=== PATIENT | male | born 1970 | race Caucasian/White ===

== ENCOUNTER 2016-12-26 15:20 | Emergency (ER) | payer OTHER ==
[~2016-12-26] VITALS: Ht 177.8 cm; Wt 103.0 kg
[2016-12-26 15:21] VITALS: BP 169/99; PULSE 85; RESP 17; TEMP 97.7; O2SAT 99
[2016-12-26 15:28] VITALS: BP 159/95; PULSE 78; RESP 16; O2SAT 98
[2016-12-26 15:34] VITALS: BP 159/95; PULSE 79; RESP 16
[2016-12-26] MEDS ORDERED: ACETAMINOPHEN 325 MG TAB PO ONE (15:45)
[2016-12-26] MEDS ORDERED: PROCHLORPERAZINE INJ 10 MG/2 ML VIAL IV PUSH ONE (15:45)
[2016-12-26] MEDS ORDERED: SODIUM CHLORID 0.9% 500 ML INJ 500 ML IV ONE (15:45)
[2016-12-26] MEDS ORDERED: diphenhydrAMINE HCL 50 MG/ML VIAL IV PUSH ONE (15:45)
[2016-12-26] MEDS ORDERED: AMLO5TAB2 PO (15:49)
[2016-12-26 16:10] LABS: AUTOMATED NEUTROPHIL # 3.7 TH/MM3 (1.8-7.7); BASOPHIL # 0.1 TH/MM3 (0-0.2); BASOPHIL % 1.4 % (0.0-2.0); EOSINOPHIL # 0.2 TH/MM3 (0-0.4); EOSINOPHIL % 3.3 % (0.0-4.0); HEMATOCRIT 44.6 % (39.0-51.0); HEMO FLAGS DIFF FINAL; LYMPH % 33.2 % (9.0-44.0); LYMPHOCYTE # 2.3 TH/MM3 (1.0-4.8); MEAN CELL VOLUME 92.9 FL (80.0-100.0); MEAN CORPUSCULAR HEMOGLOBIN 32.6 PG (27.0-34.0); MEAN CORPUSCULAR HGB CONC 35.1 % (32.0-36.0); MONO % 9.4 % (0.0-8.0); NEUT % 52.7 % (16.0-70.0); PLATELET COUNT 195 TH/MM3 (150-450); RED CELL DISTRIBUTION WIDTH 13.3 % (11.6-17.2); WHITE BLOOD COUNT 7.1 TH/MM3 (4.0-11.0)
[2016-12-26 16:34] LABS: ALKALINE PHOSPHATASE 71 U/L (45-117); TOTAL BILIRUBIN ADULT 0.3 MG/DL (0.2-1.0)
[2016-12-26 16:46] LABS: ALT (GPT) 55 U/L (12-78); ANION GAP 9 MEQ/L (5-15); AST (GOT) 37 U/L (15-37); BLOOD UREA NITROGEN 18 MG/DL (7-18); CHLORIDE 108 MEQ/L (98-107); GLOMERULAR FILTRATION RATE 49 ML/MIN (>89); POTASSIUM 4.2 MEQ/L (3.5-5.1); SODIUM (NA) 140 MEQ/L (136-145)
--- NOTE | 2016-12-26 17:56 | RADRPT ---
EXAM DATE/TIME: 12/26/2016 16:45 [place] COMPARISON: No previous studies available for comparison. INDICATIONS : Headaches with dizziness. RADIATION DOSE: 35.86 CTDIvol (mGy) MEDICAL HISTORY : Hypertension. SURGICAL HISTORY : None. ENCOUNTER: Initial ACUITY: 4 - 6 days PAIN SCALE: 7/10 LOCATION: Bilateral cranial TECHNIQUE: Multiple contiguous axial images were obtained of the head. Using automated exposure control and adj ustment of the mA and/or kV according to patient size, radiation dose was kept as low as reasonably a chievable to obtain optimal diagnostic quality images. DICOM format image data is available electro nically for review and comparison. FINDINGS: CEREBRUM: The ventricles are normal. No evidence of midline shift, mass lesion, hemorrhage or acute infarction . No extra-axial fluid collections are seen. POSTERIOR FOSSA: The cerebellum and brainstem are intact. The 4th ventricle is midline. The cerebellopontine angle i s unremarkable. EXTRACRANIAL: Visualized sinuses are clear. SKULL: The calvaria is intact. No evidence of skull fracture. CONCLUSION: Negative noncontrast head CT. Mario Ruiz MD on December 26, 2016 at 17:52 Board Certified Radiologist. This report was verified electronically.
[2016-12-26] MEDS ORDERED: KETOROLAC TROMETHAMINE 30 MG/ML (IVP) VIAL IV PUSH ONE (18:15)
[2016-12-26] MEDS ORDERED: BUTA1CAP PO (19:12)
--- NOTE | 2016-12-26 19:12 | PD ---
HPI Chief Complaint: Headache Time Seen by Provider: 15:33 Travel History International Travel<30 days: No Contact w/Intl Traveler<30days: No Traveled to known affect area: No History of Present Illness HPI Patient is a 46-year-old male comes in complaining of a headache. He says it has been going on since . He says it got worse yesterday while he was in the shower, so [facility] come [facility]. He denies fever or chills. He says the pain is mostly behind his right eye. He denies nausea or vomiting. He does say that he gets some blurry vision in the right eye when he has pain. He has not taken anything for his headache. He says that he has history of blood pressure issues, but he forgets to take his medication. Yesterday he took 2 doses of amlodipine with some relief of his pain. PFSH Past Medical History Headaches: Yes Hypertension: Yes Migraines: Yes Influenza Vaccination: No Past Surgical History Other Surgery: Yes (lt index finger) Social History Alcohol Use: Yes (2-3 beers/day) Tobacco Use: Yes (3/4 pack per day) Substance Use: No Allergies-Medications (Allergen,Severity, Reaction): Coded Allergies: Penicillins (Verified Allergy, Unknown, 12/26/16) gabapentin (Verified Adverse Reaction, Intermediate, irritation, 12/26/16) Reported Meds & Prescriptions Reported Meds & Active Scripts Active Reported Amlodipine (Amlodipine Besylate) 5 Mg Tab 5 Mg PO HS Review of Systems Except as stated in HPI: all other systems reviewed are Neg General / Constitutional: No: Fever, Chills Eyes: Positive: Blurred Vision HENT: Positive: Headaches Cardiovascular: No: Chest Pain or Discomfort Respiratory: No: Shortness of Breath Gastrointestinal: No: Vomiting, Abdominal Pain Genitourinary: No: Dysuria Musculoskeletal: No: Myalgias Skin: No Rash, No Change in Pigmentation Neurologic: No: Weakness, Dizziness, Syncope Physical Exam Narrative GENERAL: Awake and alert, in no acute distress. SKIN: Focused skin assessment warm/dry. HEAD: Atraumatic. Normocephalic. EYES: Pupils equal and round and reactive. No scleral icterus. Extraocular movements intact. ENT: No nasal bleeding or discharge. Mucous membranes pink and moist. NECK: Trachea midline. No JVD. CARDIOVASCULAR: Regular rate and rhythm. No murmur appreciated. RESPIRATORY: No accessory muscle use. Clear to auscultation. Breath sounds equal bilaterally. GASTROINTESTINAL: Abdomen soft, non-tender, nondistended. MUSCULOSKELETAL: No obvious deformities. No clubbing. No cyanosis. No edema. NEUROLOGICAL: Awake and alert. No obvious cranial nerve deficits. Motor grossly within normal limits. Normal speech. PSYCHIATRIC: Appropriate mood and affect; insight and judgment normal. Data Data Last Documented VS Vital Signs Date Time Temp Pulse Resp B/P (MAP) Pulse Ox O2 Delivery O2 Flow Rate FiO2 12/26/16 15:34 79 16 159/95 (116) Room Air 12/26/16 15:28 98 12/26/16 15:21 97.7 Orders Orders Iv Access Insert/Monitor (12/26/16 15:45) Complete Blood Count With Diff (12/26/16 15:45) Comprehensive Metabolic Panel (12/26/16 15:45) Ct Brain W/O Iv Contrast(Rout) (12/26/16 ) Sodium Chlorid 0.9% 500 Ml Inj (Ns 500 M (12/26/16 15:45) Prochlorperazine Inj (Compazine Inj) (12/26/16 15:45) Diphenhydramine Inj (Benadryl Inj) (12/26/16 15:45) Acetaminophen (Tylenol) (12/26/16 15:45) Ketorolac Inj (Toradol Inj) (12/26/16 18:15) Labs Laboratory Tests Test 12/26/16 16:00 White Blood Count 7.1 TH/MM3 Red Blood Count 4.80 MIL/MM3 Hemoglobin 15.7 GM/DL Hematocrit 44.6 % Mean Corpuscular Volume 92.9 FL Mean Corpuscular Hemoglobin 32.6 PG Mean Corpuscular Hemoglobin Concent 35.1 % Red Cell Distribution Width 13.3 % Platelet Count 195 TH/MM3 Mean Platelet Volume 8.3 FL Neutrophils (%) (Auto) 52.7 % Lymphocytes (%) (Auto) 33.2 % Monocytes (%) (Auto) 9.4 % Eosinophils (%) (Auto) 3.3 % Basophils (%) (Auto) 1.4 % Neutrophils # (Auto) 3.7 TH/MM3 Lymphocytes # (Auto) 2.3 TH/MM3 Monocytes # (Auto) 0.7 TH/MM3 Eosinophils # (Auto) 0.2 TH/MM3 Basophils # (Auto) 0.1 TH/MM3 CBC Comment DIFF FINAL Differential Comment Blood Urea Nitrogen 18 MG/DL Creatinine 1.53 MG/DL Random Glucose 101 MG/DL Total Protein 7.5 GM/DL Albumin 3.7 GM/DL Calcium Level 8.5 MG/DL Alkaline Phosphatase 71 U/L Aspartate Amino Transf (AST/SGOT) 37 U/L Alanine Aminotransferase (ALT/SGPT) 55 U/L Total Bilirubin 0.3 MG/DL Sodium Level 140 MEQ/L Potassium Level 4.2 MEQ/L Chloride Level 108 MEQ/L Carbon Dioxide Level 23.0 MEQ/L Anion Gap 9 MEQ/L Estimat Glomerular Filtration Rate 49 ML/MIN [facility] Medical Decision Making Medical Screen Exam Complete: Yes Emergency Medical Condition: Yes Differential Diagnosis Tension headache versus migraine headache versus intracranial pathology Narrative Course Patient is a 46-year-old male comes in complaining of a headache. He has a distant history of migraines, but says he has not had one a while. Exam shows no neurologic abnormalities. IV established, labs sent. Patient given IV fluids, Tylenol, Compazine, Benadryl. He says he feels a little bit better. Given a dose of Toradol. CT of his head performed shows no acute abnormalities. I explained to the patient that I could not completely rule out intracranial hemorrhage without doing an LP, though I believe it is unlikely he has one at this time. He does not wish to have a lumbar puncture performed at this time. He'll be discharged with a prescription for Fioricet. He is advised follow-up with his doctor. Advised to return to the ED as needed for any worsening symptoms. Diagnosis Primary Impression: Headache Qualified Codes: R51 - Headache Patient Instructions: Acute Headache (ED), General Instructions Additional Instructions: Take Fioricet as needed for severe pain. Be careful as it may make you very sleepy. You can also take ibuprofen as needed. Do not combine the Fioricet with Tylenol as it has Tylenol in it. Follow-up with a primary care doctor. Return to the ED as needed for any worsening symptoms. Scripts Aexdfiunth-Tiomckqjhlnzh-Jfgsksva (Fioricet) 50-300-40 Mg Cap 1 CAP PO Q4H Y for HEADACHE, #12 CAP 0 Refills Prov: Quyen Hancock MD 12/26/16 Disposition: 01 DISCHARGE HOME Condition: Stable Quyen Hancock MD Dec 26, 2016 19:12
== END 2016-12-26 19:34 | disposition home or self-care (01) ==
LOC: NEPC 15:20
DX: R51 Headache (principal); H53.8 Other visual disturbances; I10 Essential (primary) hypertension; Z72.0 Tobacco use
CPT/HCPCS: 70450; 80053; 85025; 96361; 96374; 96375; 99285; J0780; J1200; J1885; J7040